=== PATIENT | female | born 1975 | race Caucasian/White ===

== ENCOUNTER 2020-04-09 15:10 | Observation (INO) | payer OTHER, SELFPAY ==
--- NOTE | ~2020-04-09 | CT_ITS ---
EXAMINATION: CT brain wo con EXAM DATE: 04/09/2020 18:22 INDICATION: Severe fused pulsating headache, photophobia. COVID 19 positive. TECHNIQUE: Spiral CT of the head was performed without contrast. Axial, coronal and sagittal images were reviewed. The dose-length product (DLP) for this examination was 605.33 mGy-cm. The exposure w as tailored according to patient size, and iterative reconstruction (ASIR) was used as additional dos e reduction technique. There is no prior study for comparison. FINDINGS: There is no acute intraparenchymal hemorrhage. No evidence of intraparenchymal brain mass lesion. No evidence of acute infarction. There is no mass effect or midline shift. The ventricles are normal in size. There are no extra-axial collections. There are no acute calvarial fractures. T he orbits are unremarkable. Soft tissue is unremarkable. The visualized sinuses and mastoid air matteo ls are well aerated. IMPRESSION: 1. Normal head CT examination. Reviewed, dictated and finalized at location A.
--- NOTE | ~2020-04-09 | XR_ITS ---
EXAMINATION: XR chest 1V portable EXAM DATE: 04/09/2020 16:43 INDICATION: Shortness of breath. COVID 19 positive. TECHNIQUE: Portable AP frontal chest x-ray was obtained. There is no prior study for comparison. FINDINGS: The lungs are clear. There are no pleural effusions. Cardiac silhouette is prominent but magnified on this AP technique. There is no pneumothorax suspected. The bones and soft tissues are unremarkable. IMPRESSION: No acute cardiopulmonary findings. Reviewed, dictated and finalized at location A.
[2020-04-09 15:10] VITALS: BP 181/110; PULSE 128; RESP 14; TEMP 37.2; O2SAT 98
[2020-04-09] MEDS: LACTATED RINGERS 1,000 ML 999 ML IV CONT ×2 (16:20→20:31)
[2020-04-09] MEDS: METOCLOPRAMIDE HCL INJ 10 MG/2 ML VIAL 20 MG IVPB (16:20)
[2020-04-09] MEDS: diphenhydrAMINE HCl INJ 50 MG/ML VIAL 25 MG IV PUSH (16:20)
[2020-04-09 16:21] LABS: Basophils Absolute Auto 0.01 K/mm3 (0.00-0.10); Basophils Percent Auto 0.2 % (0.0-1.0); Hematocrit 51.1 % (35.0-49.0); Hemoglobin 17.1 g/dL (12.0-15.0); Immature Granulocyte Absolute 0.01 K/mm3 (0.00-0.00); Immature Granulocyte Percent A 0.2 % (0.0-0.0); Lymphocytes Absolute Auto 0.96 K/mm3 (1.10-4.50); Mean Corpuscular HGB Conc 33.5 g/dL (32.0-36.0); Mean Corpuscular Hemoglobin 30.3 pg (27.0-31.0); Mean Corpuscular Volume 90.6 fL (78.0-102.0); Mean Platelet Volume 10.1 fl (9.2-11.8); Monocytes Absolute Auto 0.32 K/mm3 (0.10-0.90); Monocytes Percent Auto 7.3 % (2.0-11.0); Neutrophils Absolute Auto 3.1 K/mm3 (1.7-7.2); Neutrophils Percent Auto 70.3 % (50.0-70.0); Platelet Count Result 273 K/mm3 (150-420); Red Blood Count 5.64 M/mm3 (4.20-5.40); Red Cell Distribution Width 12.3 % (11.6-14.4); White Blood Count 4.4 K/mm3 (4.8-10.8)
--- NOTE | 2020-04-09 16:21 | ECG_ITS ---
Measurements Intervals [place] Rate: 107 P: 20 [place]: 130 QRS: 41 QRSD: 78 T: 31 QT: 334 QTc: 446 Interpretive Statements SINUS TACHYCARDIA NONSPECIFIC ST & T-WAVE ABNORMALITY- DIFFUSE LEADS BASELINE WANDER- I, III, AVR, AVL, AVF ABNORMAL ECG Electronically Signed On 04-09-2020 19:37:23 CDT by Claudy Andrade D.O.
--- NOTE | 2020-04-09 16:23 | ED.GENADULT ---
HPI - General Adult General Chief complaint: Headache Stated complaint: unable to keep anything down Source: patient Mode of arrival: ambulatory Limitations: no limitations History of Present Illness HPI narrative: 44 y.o. c/o of global pulsatile, severe headache, gradual onset 3 days ago, progressively worsening. Pain is associated with pain over the entire face, photophobia, nausea and vomiting. She thinks she's vomited 100 times, worse in the evenings and throughout the night. She as vomited 4 -5 x today. There is minor lower abd. tenderness made worse with vomiting. She has not slept for 3 days. Nothing decreases her headache pain. Tylenol and ibuprofen have been ineffective. She had a positive Cov[facility] test [facility] 2 days ago. She was tested because her tested positive 6 days ago. Related Data Home Medications Medication Instructions Recorded Confirmed drospirenone-ethinyl estradiol 1 tablet PO DAILY 04/09/20 04/09/20 [Archana (28)] oxybutynin chloride 5 mg PO DAILY 04/09/20 04/09/20 spironolactone 100 mg PO DAILY 04/09/20 04/09/20 Allergies Allergy/AdvReac Type Severity Reaction Status Date / Time SULFA Allergy Unknown UNKNOWN Uncoded 08/06/16 11:09 WAS CHILD Review of Systems Constitutional: Constitutional: Denies chills, Reports fatigue and Denies fever(s) Eyes: Eyes: Reports no additional eye complaints ENT: Denies dysphagia, Denies nasal congestion and Reports sore throat (minor sore throat) Cardiovascular: Cardiovascular: Denies chest pain Respiratory: Respiratory: Denies cough and Denies dyspnea Gastrointestinal: Gastrointestinal: Denies diarrhea Genitourinary: Genitourinary: Reports amenorrhea and Denies dysuria Musculoskeletal: Musculoskeletal: Reports myalgias (chronic, no new change. Being worked up by rheumatology) Integumentary/Breasts: Skin/Breast: Denies rash Neurologic: Reports as per HPI, Denies abnormal gait and Denies lack of coordination [facility] Past Medical History Medical History (Updated 04/10/20 @ 05:59 by Curt Nunez MD) Tachycardia Surgical History Surgical History (Updated 04/09/20 @ 16:36 by Curt Nunez MD) History of cholecystectomy History of endometrial ablation Social History Social History (Updated 04/09/20 @ 16:37 by Curt Nunez MD) Smoking status: Never smoker Second hand tobacco smoke exposure: No Alcohol intake: former Substance use: never Living arrangements: with family Gender identity (if verbalized by the patient): Female Sexual Orientation (if Verbalized by the Patient): Straight or Heterosexual Spiritual care concerns: No Exam Const: Orientation/consciousness: patient oriented x3 Other: Photophobia Appears to be in pain. HENMT: Ears: TM's normal bilaterally General nose exam: Normal nares present Face and sinus: sinus tenderness Mouth: Yes dry mucous membranes Eyes: Conjunctivae: conjunctivae normal EOM: EOMs intact bilaterally Neck: Neck: no lymphadenopathy Other: supple Chest: Chest palpation & inspection: normal inspection of the chest Resp: Auscultation: clear to auscultation bilaterally Cardio: Rate: regular rate Rhythm: regular rhythm GI: GI Palp: Yes Soft to palpation, Yes Tenderness to palpation present (GI) (tender throughout, more prevelant across the lower abdomen), No Guarding due to palpation present (GI), No Rigid due to palpation and No Rebound tenderness present : General: Yes no CVA tenderness Skin: General skin exam: normal color Rashes: no rashes Neuro: General: patient oriented x3, moves all extremities, no meningeal signs and no focal motor deficits Cranial nerves: No Nystagmus present Speech: normal speech Extrem: General: normal to inspection, no clubbing, cyanosis or edema and no edema Psych: Appearance: grossly normal and well kempt Mental Status: mental status grossly normal Attitude: cooperative Thought content: Yes N
[2020-04-09] MEDS: SODIUM CHLORIDE 0.9% IV 250 ML (16:31)
[2020-04-09 16:36] LABS: Partial Thromboplastin Time 38.1 SEC (22.3-31.6); Prothrombin Time 9.9 Seconds (9.64-11.0)
[2020-04-09 16:47] LABS: Alanine Aminotransferase 52 U/L (14-59); Albumin Level 4.1 g/dL (3.4-5.0); Alkaline Phosphatase 69 U/L (46-116); Anion Gap 23 mmol/L (8-16); Aspartate Amino Transferase 32 U/L (15-37); Bilirubin,Total 0.4 mg/dL (0.00-1.00); Blood Urea Nitrogen 7 mg/dL (7-18); CRP 1.5 mg/dL (0.0-0.9); Calcium 8.9 mg/dL (8.5-10.1); Carbon Dioxide 10 mmol/L (21-32); Chloride 98 mmol/L (98-108); Estimated CRCL calculation 72 ml/min; Estimated Glomerular Filt Rate > 60; Ferritin 450 ng/mL (8-252); Glucose 84 mg/dL (70-99); Osmolality Calculated 269 mOsm/kg (285-295); Potassium 4.1 mmol/L (3.5-5.1); Sodium 131 mmol/L (136-145); Total Protein 8.8 g/dL (6.4-8.2)
[2020-04-09 16:52] LABS: Troponin I < 0.02 ng/mL (0.00-0.056)
[2020-04-09 17:28] LABS: Erythrocyte Sedimentation Rate 2 mm/hr (0-15)
[2020-04-09] MEDS: KETOROLAC 30 MG/ML VIAL (*BKC) IV PUSH (18:30)
[2020-04-09 19:25] LABS: Appearance Urine Clear (Clear); Bilirubin Urine Negative (Negative); Color Urine Yellow (Yellow); Glucose Urine UA Negative (Negative); Ketones Urine 3+ (Negative); Leukocyte Esterase Ur Negative (Negative); Nitrate Urine Negative (Negative); Protein Urine 1+ (Negative); Specific Grav Ur >= 1.030 (1.010-1.020); Urobilinogen Urine 0.2 mg/dL (0.2-1.0); pH Urine 5.5 (5.0-8.0)
[2020-04-09 19:42] LABS: HCO3 ABG 7.1 mmol/L (23-29); Oxygen Content ABG 21.4 %vol (16.0-22.0); Oxygen Saturation ABG 97.5 % (95-97); PO2 ABG 103.8 mmHg (80-90); Total Hemoglobin 15.6 g/dL; pH ABG 7.22 (7.35-7.45)
[2020-04-09 19:43] LABS: Modified Allen's Test Pass; PCO2 ABG 17.6 mmHg (35-45); Site Drawn RIGHT RADIAL
[2020-04-09 19:44] LABS: Device ROOM AIR
[2020-04-09 19:48] LABS: Add Urine Microscopic? YES; Bacteria Urine Trace /hpf; Blood Urine Trace (Negative); RBC Urine 0-2 /hpf (0-2); Squamous Epithelial Cell Urine Few /hpf (Few); WBC Urine 0-3 /hpf (0-3)
[2020-04-09 19:55] LABS: D Dimer 0.58 mg/L (0.19-0.50)
[2020-04-09] MEDS: ONDANSETRON INJ 4 MG/2 ML VIAL IV PUSH (20:20)
[2020-04-09] MEDS: MORPHINE SULFATE 2 MG/ML INJ IV PUSH (20:40)
--- NOTE | 2020-04-09 20:43 | PC.NURSE ---
2040 RN SPOKE WITH ISIAH RICHARDS RN, TO REQUEST OBS BED DIRECTED BY ERP. ROOM 210 PROVIDED. REGISTRATION NOTIFIED.
--- NOTE | 2020-04-09 21:08 | PC.NURSE ---
TELEPHONE REPORT PROVIDED LETY TORRES
[2020-04-09 21:10] VITALS: BP 115/73; PULSE 75; RESP 12; O2SAT 98
[2020-04-09] MEDS: DEXTROSE 5%/LACTATED RINGERS 1,000 ML 350 ML IV CONT (21:43)
[2020-04-10] VITALS: BP 145/78; PULSE 92; RESP 18; TEMP 36.2; O2SAT 99
[2020-04-10 00:41] LABS: Anion Gap 13 mmol/L (8-16); Blood Urea Nitrogen 5 mg/dL (7-18); Calcium 7.4 mg/dL (8.5-10.1); Carbon Dioxide 16 mmol/L (21-32); Chloride 103 mmol/L (98-108); Estimated CRCL calculation 73 ml/min; Estimated Glomerular Filt Rate > 60; Glucose 231 mg/dL (70-99); Osmolality Calculated 278 mOsm/kg (285-295); Potassium 3.5 mmol/L (3.5-5.1); Sodium 132 mmol/L (136-145)
[2020-04-10] MEDS: MORPHINE SULFATE 2 MG/ML INJ IV PUSH ×3 (01:01→10:16)
[2020-04-10] MEDS: DEXTROSE 5%/LACTATED RINGERS 1,000 ML 350 ML IV CONT ×2 (01:01→03:59)
[2020-04-10 04:00] VITALS: BP 105/67; PULSE 74; RESP 20; TEMP 36.4; O2SAT 97
--- NOTE | 2020-04-10 04:38 | ADMGEN ---
This patient, Pat Mcallister, was admitted to 2nd Floor Room 210-2. Patient oriented to hospital policies and general routines including ID bracelet, bed and alarms, visiting hours, pain management, procedures, bathroom and other care routines, personal items, smoking policy, room service/diet, and visiting hours. Valuables list includes clothing, sandals, wallet with no iniguez, phone with cold strip roller and glasses. Information on how to activate the Rapid Response Team has been discussed. Patient are encouraged to report perceived risks to care and to ask questions if they do not understand what they are told or what they should do.
[2020-04-10 04:50] VITALS: BMI 26.3
[2020-04-10 06:04] LABS: Hematocrit 37.9 % (35.0-49.0); Hemoglobin 13.2 g/dL (12.0-15.0); Mean Corpuscular HGB Conc 34.8 g/dL (32.0-36.0); Mean Corpuscular Hemoglobin 30.6 pg (27.0-31.0); Mean Corpuscular Volume 87.7 fL (78.0-102.0); Mean Platelet Volume 9.9 fl (9.2-11.8); Platelet Count Result 196 K/mm3 (150-420); Red Blood Count 4.32 M/mm3 (4.20-5.40); Red Cell Distribution Width 12.1 % (11.6-14.4); White Blood Count 3.7 K/mm3 (4.8-10.8)
[2020-04-10 06:18] LABS: Anion Gap 11 mmol/L (8-16); Blood Urea Nitrogen 3 mg/dL (7-18); Calcium 7.6 mg/dL (8.5-10.1); Carbon Dioxide 19 mmol/L (21-32); Chloride 105 mmol/L (98-108); Estimated CRCL calculation 70 ml/min; Estimated Glomerular Filt Rate > 60; Glucose 240 mg/dL (70-99); Osmolality Calculated 284 mOsm/kg (285-295); Potassium 3.2 mmol/L (3.5-5.1); Sodium 135 mmol/L (136-145)
[2020-04-10 06:45] LABS: Band Neutrophils Percent 0 % (0-6); Neutrophils Absolute Manual 2.29 K/mm3 (1.7-7.2); Neutrophils Percent Manual 62 % (46-73); Total Cells Counted 100
[2020-04-10 06:46] LABS: Basophils Percent Manual 0 % (0-1); Eosinophils Percent Manual 0 % (1-6); Lymphocytes Absolute Manual 1.07 K/mm3 (1.1-4.5); Lymphocytes Percent Manual 29 % (18-44); Monocytes Absolute Manual 0.33 K/mm3 (0.1-0.90); Monocytes Percent Manual 9 % (3-9); Platelet Estimate Adequate (Adequate)
[2020-04-10 08:00] VITALS: BP 115/76; PULSE 80; RESP 18; TEMP 36.6; O2SAT 95
[2020-04-10] MEDS: POTASSIUM CHLORIDE 20 MEQ TABLET 40 MEQ PO ×2 (08:00→11:26)
[2020-04-10] MEDS: LACTATED RINGERS 1,000 ML 100 ML IV CONT (08:01)
[2020-04-10 08:11] LABS: Magnesium 1.4 mg/dL (1.8-2.4); Phosphorus 1.1 mg/dL (2.6-4.7)
[2020-04-10 08:14] LABS: Creatine Kinase 16 U/L (26-192)
[2020-04-10 08:17] LABS: Creatine Kinase MB < 0.50 ng/mL (0.00-5.00)
[2020-04-10 08:18] LABS: Troponin I < 0.02 ng/mL (0.00-0.056)
--- NOTE | 2020-04-10 08:28 | PM.IMHP ---
H&P: HPI History of Present Illness Date/Time: 04/10/20 08:28 Chief complaint: dehydration,covid Narrative: Pat Mcallister is a 44 year old female admitted yesterday evening due to headache 04/08 in the ED, nausea, and vomiting. In the ED, she described the headache as global pulsatile, severe headache, gradual onset 3 days ago, progressively worsening. Pain is associated with pain over the entire face, photophobia, nausea and vomiting. She thinks she's vomited 100 times, worse in the evenings and throughout the night. She as vomited 4 -5 x yesterday. She had minor lower abd. tenderness made worse with vomiting. She has not slept for 3 days. Nothing decreases her headache pain. Tylenol and ibuprofen have been ineffective. She had a positive Covid test through the [facility] 2 days ago, April 07. She was tested because her tested positive 6 days ago. Today, Faith made it very clear to me during my interview and examination of her, that the only reason she came to the ER was due to her unresolving and on improving headache. She stated that she only agreed to be admitted by the ED physician Dr. Nunez, if she would be discharged by noon today. Will continue IV hydration, will replenish electrolytes both IV and orally, including potassium magnesium and phosphorus, will reach lab work, will discharge today with oral Zofran for any further nausea and [place] for any further or returning headaches. She was tachycardic when she was admitted with a heart rate in the 120s, her heart rate is improved today and ranges from 60 to 80. She stated that the IV morphine had resolved her headache. her ESR was normal at 2, her lactic acid normal at 1.0, and she was not having fevers. Review of Systems Review of Systems: All systems reviewed & are unremarkable except as noted in HPI and below Constitutional: Constitutional: Reports as per HPI, Denies chills, Reports fatigue, Denies fever(s), Reports headache(s), Denies lethargy and Denies weakness Eyes: Eyes: Reports as per HPI and Reports no additional eye complaints ENT: Reports as per HPI, Denies dysphagia, Denies nasal congestion and Reports sore throat (minor sore throat) Cardiovascular: Cardiovascular: Reports as per HPI, Denies chest pain and Denies dyspnea Respiratory: Respiratory: Reports as per HPI, Denies chest congestion, Denies cough, Denies hemoptysis, Denies dyspnea and Denies wheezing Gastrointestinal: Gastrointestinal: Reports as per HPI, Denies dysphagia, Denies diarrhea and Reports nausea Genitourinary: Genitourinary: Reports as per HPI, Reports amenorrhea, Denies hematuria, Denies dysuria and Denies flank pain Musculoskeletal: Musculoskeletal: Reports as per HPI, Denies abnormal gait, Denies back pain, Reports myalgias (chronic, no new change. Being worked up by rheumatology), Denies arthralgias, Denies joint swelling and Denies neck pain Integumentary/Breasts: Skin/Breast: Reports as per HPI, Denies erythema, Denies rash and Denies unusual bruising Neurologic: Reports as per HPI, Denies Abnormal speech present, Denies abnormal gait, Denies confusion, Reports headache(s), Denies lack of coordination and Denies numbness Psychiatric: Psychiatric: Reports as per HPI, Reports anxiety, Denies confusion and Denies depression Comments: Very concerned because she says she needs to be home this afternoon for a work commitment, or I will be fired Endocrine: Endocrine: Reports fatigue PMFSH Past Medical History Medical History COVID-19 Tachycardia Surgical History Surgical History History of cholecystectomy History of endometrial ablation Social History Social History Smoking status: Never smoker Second hand tobacco smoke exposure: No Alcohol intake: former Substance use: never Living arrangements: with [facility]
[2020-04-10] MEDS: MAGNESIUM SULF 4 GM/WATER100ML 4 GM/100 ML BAG IVPB (09:31)
[2020-04-10] MEDS: MAGNESIUM OXIDE 400 MG TABLET PO (09:32)
[2020-04-10] MEDS: POTASSIUM/PHOSPHORUS/SODIUM 1.5 GM PACKET 1 PACKET PO ×2 (09:33→11:26)
--- NOTE | 2020-04-10 10:00 | PC.NURSE ---
headache getting some worse, feeling flusehd from magnesium drip and did have small liquid emesis, zofran given, states stomach doesnt feel too bad but feels bad from magnesium, fluids started to infuse with magnesium to try to dilute and cause less burning sensatino, good blood return from IV site
[2020-04-10] MEDS: ONDANSETRON INJ 4 MG/2 ML VIAL IV PUSH (10:16)
--- NOTE | 2020-04-10 10:57 | PC.NURSE ---
regular tray to patient
--- NOTE | 2020-04-10 11:18 | PC.NURSE ---
reglan 20 mg in 250 ml NS initiated at 1731. Stop time 1831
[2020-04-10] MEDS: ACETAMINOPHEN 500 MG TABLET 1000 MG PO (11:57)
[2020-04-10] MEDS: LIDOCAINE 5% PATCH 2 PATCH TRANSDERM (11:57)
--- NOTE | 2020-04-10 12:20 | PM.DS ---
DS: Admitting Diagnosis Admitting Diagnosis Admitting Diagnosis: Dehydration DS: Discharge Diagnosis Discharge Diagnosis (1) COVID-19: Code(s): U07.1 - COVID-19 Status: Acute Assessment and Plan: patient tested positive on April 07 per report, patient was at a wedding and multiple people became infected with COVID she is not having any respiratory concerns, no coughing, no sputum, no wheezing or abnormal lung sounds at this time patient did show an enlarged heart on her chest x-ray, the patient told me she really has a registration representative and will follow-up with them she denies any chest pain or chest pressure instructed patient to follow-up with her registration representative in 1-3 weeks instructed patient to follow-up with her primary care provider Dr. Ellis either tomorrow or Wednesday this week (2) Acute dehydration: Code(s): E86.0 - Dehydration Status: Acute Assessment and Plan: patient received over 2 L of IV fluids encouraged oral hydration given oral Zofran p.r.n. at discharge for any nausea or vomiting at home likely due to her COVID diagnosis if her nausea and vomiting persist, she and her primary care provider will need further testing (3) Hypophosphatemia: Code(s): E83.39 - Other disorders of phosphorus metabolism Status: Acute Assessment and Plan: phosphorus level low at 1.1 replenished with oral phosphorus packets level improved to 1.3 encourage patient to take daily multivitamin after discharge encourage patient to eat foods known to have phosphorus sources ordered repeat lab work including phosphorus level to be done on WednesdayApril 12 instructed patient to follow-up with Dr. Ellis her primary care provider tomorrow or the next day which is the (4) Hypomagnesemia: Code(s): E83.42 - Hypomagnesemia Status: Acute Assessment and Plan: magnesium level low at 1.4 replenished with IV magnesium, 4 g level improved to 2.9 encourage patient to take daily multivitamin after discharge encourage patient to taken daily magnesium [id number] supplement ordered repeat lab work including magnesium level to be done on WednesdayApril 12 instructed patient to follow-up with Dr. Ellis her primary care provider tomorrow or the next day which is the (5) Hypokalemia: Code(s): E87.6 - Hypokalemia Status: Acute Assessment and Plan: potassium level 3.2 replenished with oral potassium supplements level improved to 3.6 encourage patient to take daily multivitamin after discharge encourage patient to eat foods known to have potassium sources ordered repeat lab work including potassium level to be done on WednesdayApril 12 instructed patient to follow-up with Dr. Ellis her primary care provider tomorrow or the next day which is the (6) Headache: Qualifiers: Headache type: unspecified Code(s): R51 - Headache Status: Acute Assessment and Plan: headache is likely due to COVID and or dehydration and/or electrolyte imbalances may improve as her COVID recovery progresses corrected her dehydration and her like her lytes imbalances as best as she would allow instructed patient to continue oral hydration at home instructed patient to follow-up with her primary provided patient with Jennifer for any return of headache as well as Tylenol instructions her headache is currently resolved or well controlled at this time and she wants to go home now DS: Summary Time Spent with Patient Time attestation: Total time spent providing and/or coordinating discharge services: Exam Const: General: comfortable and no acute distress; No confusion Orientation/consciousness: patient oriented x3 and No confusion Other: comfortable and ready to go home HENMT: Ears: TM's normal bilaterally General nose exam: Normal nares present Face and sinus: sinus tenderness Mouth: Yes moist mucous
[2020-04-10 12:28] LABS: Sodium 136 mmol/L (136-145)
[2020-04-10 12:29] LABS: Anion Gap 13 mmol/L (8-16); Blood Urea Nitrogen 2 mg/dL (7-18); Carbon Dioxide 19 mmol/L (21-32); Chloride 104 mmol/L (98-108); Estimated CRCL calculation 111 ml/min; Estimated Glomerular Filt Rate > 60; Potassium 3.6 mmol/L (3.5-5.1)
[2020-04-10 12:30] LABS: CRP 1.2 mg/dL (0.0-0.9); Calcium 7.7 mg/dL (8.5-10.1); Glucose 124 mg/dL (70-99); Magnesium 2.9 mg/dL (1.8-2.4); Osmolality Calculated 279 mOsm/kg (285-295); Phosphorus 1.3 mg/dL (2.6-4.7)
[2020-04-10 12:33] LABS: Troponin I < 0.02 ng/mL (0.00-0.056)
--- NOTE | 2020-04-10 12:35 | PC.NURSE ---
Discharge to home with personal items, no questions regarding plan of care for discharge
--- NOTE | 2020-04-10 14:00 | ECG_ITS ---
Measurements Intervals [place] Rate: 94 P: 26 [place]: 138 QRS: 5 QRSD: 88 T: 6 QT: 381 QTc: 477 Interpretive Statements SINUS RHYTHM NONSPECIFIC T-WAVE ABNORMALITY- ANT/INF LEADS BORDERLINE ECG Electronically Signed On 04-10-2020 8:49:58 CDT by Claudy Andrade D.O.
--- NOTE | 2020-04-10 23:25 | PM.EVENT ---
Event Note Event Note Event Note: I have examined the patient reviewed the chart. I discussed the patient's care with A Cy VASQUEZ and agree with her assessment and plan.
== END 2020-04-10 12:35 | disposition home or self-care (01) ==
LOC: CHSED 15:15 → CHS2ND 20:51
PROVIDERS: Nurse Practitioner; Admitting Provider Family Medicine; Emergency Provider Family Medicine; Visit Provider Family Medicine
DX: U07.1 COVID-19 (principal); E86.0 Dehydration; E87.2 Acidosis; E83.39 Other disorders of phosphorus metabolism; E83.42 Hypomagnesemia; E87.6 Hypokalemia
CPT/HCPCS: 36415; 36600; 70450; 71045; 80048; 80053; 81001; 82550; 82553; 82728; 82805; 83605; 83735; 84100; 84484; 85025; 85380; 85610; 85652; 85730; 86140; 87040; 87635; 93005; 96361; 96365; 96366; 96374; 96375; 96376; 99284; 99285; A9270; C9803; G0378; J1200; J1885; J2270; J2405; J2765; J3475; J7050; J7120; J7121; U0003

== ENCOUNTER 2021-07-10 16:21 | Outpatient (CLI) | payer OTHER, SELFPAY ==
--- NOTE | ~2021-07-10 | CT_ITS ---
EXAMINATION: CT abdomen wo con DATE: 07/10/2021 16:58 INDICATION: Suprapubic pain. History of stones. TECHNIQUE: Computed tomography (CT) of the abdomen no free air or free fluid. There is mild atheroscl erosis. No lymphadenopathy. Was performed without intravenous contrast. The dose-length product was 2 43.33 mGy-cm. Automated exposure control and iterative reconstruction technique were employed. COMPARISON: CT dated 09/26/2019. FINDINGS: Lung bases unremarkable. Heart size normal. No significant pleural or pericardial effusion. Status post cholecystectomy. There is a subtle hypodense lesion of the right hepatic lobe, most like ly benign cyst or hemangioma. There are calcified granulomas of the liver and spleen. There are mateo cystectomy clips. Kidneys within normal limits. No hydronephrosis. Pancreas and adrenal glands are wi thin normal limits. Nonobstructive bowel gas pattern. There is spondylosis at L5-S1. No acute osseous abnormality. IMPRESSION: 1. No acute abdominal abnormality. Reviewed, dictated and finalized at location A. RRAGE CLERK
== END 2021-07-10 16:22 | disposition home or self-care (01) ==
LOC: CHSIMG 16:26
DX: Z87.442 Personal history of urinary calculi (principal); R10.2 Pelvic and perineal pain
CPT/HCPCS: 74150